=== PATIENT | female | born 1995 | race Caucasian/White ===

== ENCOUNTER 2016-10-07 20:47 | Observation (INO) | payer OTHER ==
[2016-10-07] MEDS ORDERED: NS 0.9% 1000 ML* 2,000 ML IV ONE (20:52)
[2016-10-07] MEDS ORDERED: LORazepam INJ* 2 MG/ML 1 ML VIAL IV ONE ×3 (20:57→21:24)
[2016-10-07] MEDS ORDERED: LORazepam INJ* 2 MG/ML 1 ML VIAL ONE (20:59)
[2016-10-07 21:08] LABS: Hematocrit 43 % (35-47); Hemoglobin 15.2 g/dl (12.0-16.0); Mean Corpuscular HGB Conc 35 g/dl (31-36); Mean Corpuscular Hemoglobin 31 pg (27-31); Mean Corpuscular Volume 89 fL (80-97); Mean Platelet Volume 8 um3 (7.4-10.4); Red Blood Count 4.85 10^6/ul (4.0-5.4); Red Cell Distribution Width 13 % (10.5-15); White Blood Count 8.5 10^3/ul (3.5-10.8)
[2016-10-07 21:27] LABS: ALT 14 U/L (7-52); AST 20 U/L (13-39); Albumin 4.3 g/dL (3.2-5.2); Alkaline Phosphatase 49 U/L (34-104); Anion Gap 10 mmol/L (2-11); Blood Urea Nitrogen 9 mg/dL (6-24); C Reactive Protein < 1.00 mg/L (< 5.00); CO2 Carbon Dioxide 20 mmol/L (22-32); Calcium 8.8 mg/dL (8.6-10.3); Chloride 110 mmol/L (101-111); Creatine Kinase 50 U/L (10-223); EGFR African American 113.2 (>60); Globulin 2.7 g/dL (2-4); Glucose 91 mg/dL (70-100); Lipase 26 U/L (11.0-82.0); Magnesium 1.8 mg/dL (1.9-2.7); Potassium 3.8 mmol/L (3.5-5.0); Sodium 140 mmol/L (133-145)
[2016-10-07] MEDS ORDERED: Magnesium Sulfate 2 GM IV* 2 GM/50 ML BAG IVPB ONE (21:33)
[2016-10-07 21:34] LABS: Urine Bilirubin Negative (Negative); Urine Glucose Negative (Negative); Urine Nitrite Negative (Negative)
[2016-10-07 21:48] LABS: Benzodiazepine Urine Screen Presumptive Positive (None Detect)
[2016-10-07 21:48] LABS: Acetaminophen < 15 mcg/mL; Alcohol 88 mg/dL (<10); Salicylate < 2.50 mg/dL (<30)
[2016-10-07] MEDS ORDERED: LORazepam INJ* 2 MG/ML 1 ML VIAL IV PRN (21:52)
[2016-10-07 21:58] LABS: TSH (Thyroid Stimulating Horm) 2.33 mcIU/mL (0.34-5.60)
[2016-10-07] MEDS ORDERED: Acetaminophen TAB* 325 MG PO PRN (22:38)
[2016-10-07] MEDS ORDERED: Ondansetron INJ* 2 MG/ML VIAL IV PRN (22:38)
[2016-10-07] MEDS ORDERED: NS 0.9% 1000 ML* 1,000 ML IV SCH (22:45)
--- NOTE | 2016-10-07 22:49 | HP ---
H&P (Free Text) History and Physical: PCP: Yue Juarez Date/Time of Evaluation: 10/07/2016 2230 CC: AMS HPI: Ms Wu is a 21YO [employer] student who was at a democrat and found unresponsive by a friend who called EMS. En route, she reportedly had a grand mal tonic-clonic seizure and was given Versed. Upon my arrival, she admits to drinking alcohol, but denies any other substance. She is confused and cannot give reliable historic information otherwise. She denies pain, F/C, cough, congestion, headache, N/V/D, or other issues. Vitals are tachycardic in the 110s with otherwise stable vitals. Labs notable only for a lactic acid of 2.7 and a tox screen showing benzodiazepines ( from EMS) and alcohol level of 88. Prolactin is pending. CT brain WO, CT C-spine WO are pending. Poison control recommends ~8hours monitoring for potential undisclosed ingestion. PMedHx anxiety related seizure depression Medications unknown, will need reconciling in AM. Allergies No Known Allergies Allergy (Verified 10/07/16 20:57) PSurgHx cyst removed from thigh SocHx: denies tobacco & recreational drugs, admits to occasional alcohol; [employer] student studying Journalism and Politics; full code status FamHx: unobtainable ROS: as above, otherwise reviewed and all were negative Constitutional: NAD, normally developed, well-nourished white female vitals: Vital Signs Temp 37.3 C 10/07/16 20:47 Pulse 105 10/07/16 20:47 Resp 18 10/07/16 21:29 BP 116/70 10/07/16 20:47 Pulse Ox 100 10/07/16 20:47 Intake & Output 10/06/16 10/07/16 10/07/16 23:59 11:59 23:59 Weight 58.967 kg HEENM: atraumatic; sclera/conjunctiva: non-icteric/clear; pupils: ~10mm, minimally responsive; hearing: clinically intact; oropharynx: clear, mucosa moist Neck: soft tissue: non-tender; thyroid: normal Pulmonary: clear to auscultation bilaterally, good aeration, no accessory muscle use CV: RR/RR, normal S1S2, no carotid bruit, no jugular venous distention, 2+ B DP/ PT, no edema Abdominal: soft, non-distended, non-tender, no rebound/guarding/rigidity, normoactive bowel sounds, no hepatosplenomegaly or masses, no costovertebral angle tenderness Musculoskeletal: general: grossly intact; gait: stable Integumental: normal appearance and texture of exposed skin Psychiatric orientation: AA&O to PPS affect: calm mood: acquiescent eye contact: poor content: unreliable responses: slowed insight: poor Testing: Lab Results 10/07/16 10/07/16 10/07/16 Range/Units 20:57 20:57 20:57 WBC 8.5 (3.5-10.8) 10^3/ul RBC 4.85 (4.0-5.4) 10^6/ul Hgb 15.2 (12.0-16.0) g/dl Hct 43 (35-47) % MCV 89 (80-97) fL MCH 31 (27-31) pg MCHC 35 (31-36) g/dl RDW 13 (10.5-15) % Plt Count 256 (150-450) 10^3/ul MPV 8 (7.4-10.4) um3 Neut % (Auto) 70.6 (38-83) % Lymph % (Auto) 22.6 L (25-47) % [place] % (Auto) 4.9 (1-9) % Eos % (Auto) 0.2 (0-6) % Baso % (Auto) 1.7 (0-2) % Absolute Neuts (auto) 6.0 (1.5-7.7) 10^3/ul Absolute Lymphs (auto) 1.9 (1.0-4.8) 10^3/ul Absolute Monos (auto) 0.4 (0-0.8) 10^3/ul Absolute Eos (auto) 0 (0-0.6) 10^3/ul Absolute Basos (auto) 0.1 (0-0.2) 10^3/ul Absolute Nucleated RBC 0.01 10^3/ul Nucleated RBC % 0.1 INR (Anticoag Therapy) 1.03 (0.89-1.11) APTT 31.1 (26.0-36.3) seconds Sodium 140 (133-145) mmol/L Potassium 3.8 (3.5-5.0) mmol/L Chloride 110 (101-111) mmol/L Carbon Dioxide 20 L (22-32) mmol/L Anion Gap 10 (2-11) mmol/L BUN 9 (6-24) mg/dL Creatinine 0.82 (0.51-0.95) mg/dL Est GFR ( Amer) 113.2 (>60) Est GFR (Non-Af Amer) 88.0 (>60) BUN/Creatinine Ratio 11.0 (8-20) Glucose 91 (70-100) mg/dL Lactic Acid (0.5-2.0) mmol/L Calcium 8.8 (8.6-10.3) mg/dL Magnesium 1.8 L (1.9-2.7) mg/dL Total Bilirubin 0.50 (0.2-1.0) mg/dL AST 20 (13-39) U/L ALT 14 (7-52) U/L Alkaline Phosphatase 49 (34-104) U/L Total Creatine Kinase 50 (10-223) U/L CK-MB (CK-2) 1.1 (0.6-6.3) ng/mL Troponin I 0.00 (<0.04) ng/mL C-Reactive Protein < 1.00 (< 5.00) mg/L Total Protein 7.0 (6.4-8.9) g/dL Albumin 4.3 (3.2-5.2) g/dL Globulin 2.7 (2-4) g/dL Albumin/Globulin Ratio 1.6 (1-3) Lipase 26 (11.0-82.0) U/L TSH 2.33 (0.34-5.60) mcIU/mL Prolactin 22.8 (1.0-25.0) ng/mL Beta HCG, Quant < 0.60 mIU/mL Urine Color Urine Appearance Urine pH (5-9) Ur Specific [place] (1.010-1.030) Urine Protein (Negative) Urine Ketones (Negative) Urine Blood (Negative) Urine Nitrate (Negative) Urine Bilirubin (Negative) Urine Urobilinogen (Negative) Ur Leukocyte Esterase (Negative) Urine Glucose (Negative) Salicylates < 2.50 (<30) mg/dL Urine Opiates Screen (None Detect) Acetaminophen < 15 mcg/mL Ur Barbiturates Screen (None Detect) Ur Phencyclidine Scrn (None Detect) Ur Amphetamines Screen (None Detect) U Benzodiazepines Scrn (None Detect) Urine Cocaine Screen (None Detect) U Cannabinoids Screen (None Detect) Serum Alcohol 88 H (<10) mg/dL 10/07/16 10/07/16 10/07/16 Range/Units 20:57 21:20 21:20 WBC (3.5-10.8) 10^3/ul RBC (4.0-5.4) 10^6/ul Hgb (12.0-16.0) g/dl Hct (35-47) % MCV (80-97) fL MCH (27-31) pg MCHC (31-36) g/dl RDW (10.5-15) % Plt Count (150-450) 10^3/ul MPV (7.4-10.4) um3 Neut % (Auto) (38-83) % Lymph % (Auto) (25-47) % [place] % (Auto) (1-9) % Eos % (Auto) (0-6) % Baso % (Auto) (0-2) % Absolute Neuts (auto) (1.5-7.7) 10^3/ul Absolute Lymphs (auto) (1.0-4.8) 10^3/ul Absolute Monos (auto) (0-0.8) 10^3/ul Absolute Eos (auto) (0-0.6) 10^3/ul Absolute Basos (auto) (0-0.2) 10^3/ul Absolute Nucleated RBC 10^3/ul Nucleated RBC % INR (Anticoag Therapy) (0.89-1.11) APTT (26.0-36.3) seconds Sodium (133-145) mmol/L Potassium (3.5-5.0) mmol/L Chloride (101-111) mmol/L Carbon Dioxide (22-32) mmol/L Anion Gap (2-11) mmol/L BUN (6-24) mg/dL Creatinine (0.51-0.95) mg/dL Est GFR ( Amer) (>60) Est GFR (Non-Af Amer) (>60) BUN/Creatinine Ratio (8-20) Glucose (70-100) mg/dL Lactic Acid 2.7 H* (0.5-2.0) mmol/L Calcium (8.6-10.3) mg/dL Magnesium (1.9-2.7) mg/dL Total Bilirubin (0.2-1.0) mg/dL AST (13-39) U/L ALT (7-52) U/L Alkaline Phosphatase (34-104) U/L Total Creatine Kinase (10-223) U/L CK-MB (CK-2) (0.6-6.3) ng/mL Troponin I (<0.04) ng/mL C-Reactive Protein (< 5.00) mg/L Total Protein (6.4-8.9) g/dL Albumin (3.2-5.2) g/dL Globulin (2-4) g/dL Albumin/Globulin Ratio (1-3) Lipase (11.0-82.0) U/L TSH (0.34-5.60) mcIU/mL Prolactin (1.0-25.0) ng/mL Beta HCG, Quant mIU/mL Urine Color Straw Urine Appearance Clear Urine pH 6.0 (5-9) Ur Specific [place] 1.003 L (1.010-1.030) Urine Protein Negative (Negative) Urine Ketones Negative (Negative) Urine Blood Negative (Negative) Urine Nitrate Negative (Negative) Urine Bilirubin Negative (Negative) Urine Urobilinogen Negative (Negative) Ur Leukocyte Esterase Negative (Negative) Urine Glucose Negative (Negative) Salicylates (<30) mg/dL Urine Opiates Screen None detected (None Detect) Acetaminophen mcg/mL Ur Barbiturates Screen None detected (None Detect) Ur Phencyclidine Scrn None detected (None Detect) Ur Amphetamines Screen None detected (None Detect) U Benzodiazepines Scrn Presumptive positive H (None Detect) Urine Cocaine Screen None detected (None Detect) U Cannabinoids Screen None detected (None Detect) Serum Alcohol (<10) mg/dL ECG, personally reviewed: NSR rate 106, no ischemia CXR: ordered, pending CT brain WO: ordered, pending CT C-spine WO: ordered, pending Impression: 21F presenting with AMS of uncertain etiology DIAGNOSIS & PLAN Primary AMS/confusion/agitation suspected undisclosed ingestion : telemetery : one to one monitoring : avoid sedating medications : supplemental oxygen : prolactin pending : supportive care Admission Rational: CDU observation for AMS ? ingestion DVTp: POPEYE Code Status: full HCP: mother
[2016-10-07 23:00] LABS: Prolactin 22.8 ng/mL (1.0-25.0)
--- NOTE | 2016-10-07 23:03 | ED ---
Sushila Pearson Anna, scribed for Severiano Yepez MD on 10/07/16 at 2055 . Substance Abuse/Use - HPI Summary HPI Summary: Patient is a 20 y/o female BIBA to [facility] presenting with altered mental status that began this evening after consuming wine. Her friends called the ambulance when the patient became unresponsive. Per EMS, she was responsive to pain but nothing else upon their arrival. She was given fluids INTELLIGENCE INTERN. En route, she spiked a HR of 186 and had a grand mal seizure. She was given Versed. She is now semi- alert. No known head trauma. She denies drug use tonight. Her friend reports that the patient has a history of depression and when self-medicating will often drink alcohol. She previously used street drugs to self-medicate but has not been known to do so in the last year. She was previously on anti- depressants but has not taken them for a while. LEVEL 5 CAVEAT - UNABLE TO OBTAIN FULL HISTORY DUE TO AMS - History Of Current Complaint Stated Complaint: ETOH Hx Obtained From: Patient, EMS, Other: - Patient's friend Onset/Duration of Drug/ETOH Abuse: Days Ingestion History: Type/Name Of Drug - wine Associated Signs And Symptoms: Seizure, Other: - episode of elevated HR - Allergies/Home Medications Allergies/Adverse Reactions: Allergies Allergy/AdvReac Type Severity Reaction Status Date / Time No Known Allergies Allergy Verified 10/07/16 20:57 PMH/Surg Hx/FS Hx/Imm Hx Neurological History: Reports: Hx Seizures - She has had one previous seizure, which was said to be anxiety-related Psychiatric History: Reports: Hx Anxiety, Hx Depression, Hx Post Traumatic Stress Disorder, Hx Substance Abuse - inc. Hx intentional overdose, Other Psychiatric Issues/Disorders - Hx self-harm via razors Denies: Hx Eating Disorder, Hx of Violent Episodes Against Others - Family History Known Family History: Positive: Other - FHx suicide, depression, substance abuse - Social History Occupation: Student Lives: With Family Alcohol Use: Occasionally Substance Use Type: Reports: Other Substance Use Comment - Amount & Last Used: over the counter medications Smoking Status (MU): Never Smoked Tobacco Review of Systems - ROS Summary Review of Systems Summary: LEVEL 5 CAVEAT - UNABLE TO OBTAIN FULL HISTORY DUE TO AMS Cardiovascular: Other - elevated HR Neurological: Other - AMS Positive: Syncope - seizure All Other Systems Reviewed And Are Negative: No Physical Exam - Summary Physical Exam Summary: No obvious signs of trauma. Triage Information Reviewed: Yes Vital Signs On Initial Exam: Temp Pulse Resp BP Pulse Ox 99.1 F 105 22 116/70 100 10/07/16 20:47 10/07/16 20:47 10/07/16 21:01 10/07/16 20:47 10/07/16 20:47 Vital Signs Reviewed: Yes Appearance: Positive: Well-Appearing, No Pain Distress Skin: Positive: Warm, Skin Color Reflects Adequate Perfusion, Dry Head/Face: Positive: Normal Head/Face Inspection Eyes: Positive: Other: - Pupils 6 mm and reactive ENT: Positive: Normal ENT inspection Neck: Positive: Supple, Nontender Respiratory/Lung Sounds: Positive: Clear to Auscultation, Breath Sounds Present Cardiovascular: Positive: Tachycardia Abdomen Description: Positive: Nontender, Soft Bowel Sounds: Positive: Present Musculoskeletal: Positive: Normal, Strength/ROM Intact Neurological: Positive: Other - Pt is mildly stuporous. Moving extremities normally. Psychiatric: Positive: Affect/Mood Appropriate Diagnostics - Vital Signs Vital Signs Temp Pulse Resp BP Pulse Ox 10/07/16 21:29 18 10/07/16 21:15 20 10/07/16 21:01 22 10/07/16 20:47 99.1 F 105 27 116/70 100 - Laboratory Lab Results: Lab Results 10/07/16 10/07/16 10/07/16 Range/Units 20:57 20:57 20:57 WBC 8.5 (3.5-10.8) 10^3/ul RBC 4.85 (4.0-5.4) 10^6/ul Hgb 15.2 (12.0-16.0) g/dl Hct 43 (35-47) % MCV 89 (80-97) fL MCH 31 (27-31) pg MCHC 35 (31-36) g/dl RDW 13 (10.5-15) % Plt Count 256 (150-450) 10^3/ul MPV 8 (7.4-10.4) um3 Neut % (Auto) 70.6 (38-83) % Lymph % (Auto) 22.6 L (25-47) % [place] % (Auto) 4.9 (1-9) % Eos % (Auto) 0.2 (0-6) % Baso % (Auto) 1.7 (0-2) % Absolute Neuts (auto) 6.0 (1.5-7.7) 10^3/ul Absolute Lymphs (auto) 1.9 (1.0-4.8) 10^3/ul Absolute Monos (auto) 0.4 (0-0.8) 10^3/ul Absolute Eos (auto) 0 (0-0.6) 10^3/ul Absolute Basos (auto) 0.1 (0-0.2) 10^3/ul Absolute Nucleated RBC 0.01 10^3/ul Nucleated RBC % 0.1 INR (Anticoag Therapy) 1.03 (0.89-1.11) APTT 31.1 (26.0-36.3) seconds Sodium 140 (133-145) mmol/L Potassium 3.8 (3.5-5.0) mmol/L Chloride 110 (101-111) mmol/L Carbon Dioxide 20 L (22-32) mmol/L Anion Gap 10 (2-11) mmol/L BUN 9 (6-24) mg/dL Creatinine 0.82 (0.51-0.95) mg/dL Est GFR ( Amer) 113.2 (>60) Est GFR (Non-Af Amer) 88.0 (>60) BUN/Creatinine Ratio 11.0 (8-20) Glucose 91 (70-100) mg/dL Lactic Acid (0.5-2.0) mmol/L Calcium 8.8 (8.6-10.3) mg/dL Magnesium 1.8 L (1.9-2.7) mg/dL Total Bilirubin 0.50 (0.2-1.0) mg/dL AST 20 (13-39) U/L ALT 14 (7-52) U/L Alkaline Phosphatase 49 (34-104) U/L Total Creatine Kinase 50 (10-223) U/L CK-MB (CK-2) 1.1 (0.6-6.3) ng/mL Troponin I 0.00 (<0.04) ng/mL C-Reactive Protein < 1.00 (< 5.00) mg/L Total Protein 7.0 (6.4-8.9) g/dL Albumin 4.3 (3.2-5.2) g/dL Globulin 2.7 (2-4) g/dL Albumin/Globulin Ratio 1.6 (1-3) Lipase 26 (11.0-82.0) U/L TSH 2.33 (0.34-5.60) mcIU/mL Prolactin 22.8 (1.0-25.0) ng/mL Beta HCG, Quant < 0.60 mIU/mL Urine Color Urine Appearance Urine pH (5-9) Ur Specific [place] (1.010-1.030) Urine Protein (Negative) Urine Ketones (Negative) Urine Blood (Negative) Urine Nitrate (Negative) Urine Bilirubin (Negative) Urine Urobilinogen (Negative) Ur Leukocyte Esterase (Negative) Urine Glucose (Negative) Salicylates < 2.50 (<30) mg/dL Urine Opiates Screen (None Detect) Acetaminophen < 15 mcg/mL Ur Barbiturates Screen (None Detect) Ur Phencyclidine Scrn (None Detect) Ur Amphetamines Screen (None Detect) U Benzodiazepines Scrn (None Detect) Urine Cocaine Screen (None Detect) U Cannabinoids Screen (None Detect) Serum Alcohol 88 H (<10) mg/dL 10/07/16 10/07/16 10/07/16 Range/Units 20:57 21:20 21:20 WBC (3.5-10.8) 10^3/ul RBC (4.0-5.4) 10^6/ul Hgb (12.0-16.0) g/dl Hct (35-47) % MCV (80-97) fL MCH (27-31) pg MCHC (31-36) g/dl RDW (10.5-15) % Plt Count (150-450) 10^3/ul MPV (7.4-10.4) um3 Neut % (Auto) (38-83) % Lymph % (Auto) (25-47) % [place] % (Auto) (1-9) % Eos % (Auto) (0-6) % Baso % (Auto) (0-2) % Absolute Neuts (auto) (1.5-7.7) 10^3/ul Absolute Lymphs (auto) (1.0-4.8) 10^3/ul Absolute Monos (auto) (0-0.8) 10^3/ul Absolute Eos (auto) (0-0.6) 10^3/ul Absolute Basos (auto) (0-0.2) 10^3/ul Absolute Nucleated RBC 10^3/ul Nucleated RBC % INR (Anticoag Therapy) (0.89-1.11) APTT (26.0-36.3) seconds Sodium (133-145) mmol/L Potassium (3.5-5.0) mmol/L Chloride (101-111) mmol/L Carbon Dioxide (22-32) mmol/L Anion Gap (2-11) mmol/L BUN (6-24) mg/dL Creatinine (0.51-0.95) mg/dL Est GFR ( Amer) (>60) Est GFR (Non-Af Amer) (>60) BUN/Creatinine Ratio (8-20) Glucose (70-100) mg/dL Lactic Acid 2.7 H* (0.5-2.0) mmol/L Calcium (8.6-10.3) mg/dL Magnesium (1.9-2.7) mg/dL Total Bilirubin (0.2-1.0) mg/dL AST (13-39) U/L ALT (7-52) U/L Alkaline Phosphatase (34-104) U/L Total Creatine Kinase (10-223) U/L CK-MB (CK-2) (0.6-6.3) ng/mL Troponin I (<0.04) ng/mL C-Reactive Protein (< 5.00) mg/L Total Protein (6.4-8.9) g/dL Albumin (3.2-5.2) g/dL Globulin (2-4) g/dL Albumin/Globulin Ratio (1-3) Lipase (11.0-82.0) U/L TSH (0.34-5.60) mcIU/mL Prolactin (1.0-25.0) ng/mL Beta HCG, Quant mIU/mL Urine Color Straw Urine Appearance Clear Urine pH 6.0 (5-9) Ur Specific [place] 1.003 L (1.010-1.030) Urine Protein Negative (Negative) Urine Ketones Negative (Negative) Urine Blood Negative (Negative) Urine Nitrate Negative (Negative) Urine Bilirubin Negative (Negative) Urine Urobilinogen Negative (Negative) Ur Leukocyte Esterase Negative (Negative) Urine Glucose Negative (Negative) Salicylates (<30) mg/dL Urine Opiates Screen None detected (None Detect) Acetaminophen mcg/mL Ur Barbiturates Screen None detected (None Detect) Ur Phencyclidine Scrn None detected (None Detect) Ur Amphetamines Screen None detected (None Detect) U Benzodiazepines Scrn Presumptive positive H (None Detect) Urine Cocaine Screen None detected (None Detect) U Cannabinoids Screen None detected (None Detect) Serum Alcohol (<10) mg/dL Result Diagrams: 10/07/16 20:57 10/07/16 20:57 Lab Statement: Any lab studies that have been ordered have been reviewed, and results considered in the medical decision making process. - EKG 2155 Cardiac Rate: Tachycardia - 106 bpm EKG Rhythm: Sinus Tachycardia ST Segment: Normal Ectopy: None EKG Interpretation: MS 163. QTc 467. Course/Dx - Course Assessment/Plan: PATIENT AGITATED IN ED, REQUIRING IV ATIVAN AND RESTRAINTS. PUPILS DIALATED. PRIOR HX OF ONE SEIZURE PER MOTHER. ETOH LEVEL 88. DISCUSSED WITH POISON CONTROL. ADMIT HOSPITALIST STABLE. - Diagnoses Provider Diagnoses: Seizure, Substance abuse - Physician Notifications Discussed Care Of Patient With: Nurse Kait discussed care with Poison Control at 2220. Poison control says patient can be given more fluids and Benzo as needed. She should be watched for 6-[address] Lind (hospitalist) at 2230. Agrees to accept patient for admission. - Critical Care Time Critical Care Time: 30-74 min Discharge - Discharge Plan Condition: Stable Disposition: ADMITTED TO [facility] documentation as recorded by the Sushila castellano Anna accurately reflects the service I personally performed and the decisions made by me, Severiano Yepez MD.
[2016-10-08 05:22] LABS: Hematocrit 42 % (35-47); Hemoglobin 14.4 g/dl (12.0-16.0); Mean Corpuscular HGB Conc 34 g/dl (31-36); Mean Corpuscular Hemoglobin 31 pg (27-31); Mean Corpuscular Volume 90 fL (80-97); Mean Platelet Volume 8 um3 (7.4-10.4); Red Blood Count 4.68 10^6/ul (4.0-5.4); Red Cell Distribution Width 13 % (10.5-15); White Blood Count 8.9 10^3/ul (3.5-10.8)
[2016-10-08 05:47] LABS: BUN/Creatinine Ratio 10.3 (8-20); Calcium 8.4 mg/dL (8.6-10.3); EGFR African American 140.5 (>60); EGFR Non-African American 109.2 (>60); Potassium 3.9 mmol/L (3.5-5.0)
[2016-10-08] MEDS ORDERED: Omeprazole CAP* 20 MG PO SCH (06:00)
--- NOTE | 2016-10-08 08:15 | RAD ---
INDICATION: Altered mental status COMPARISON: None TECHNIQUE: PA dual-energy views were obtained. FINDINGS: Bones/Soft Tissues: There are no acute bony findings. Cardiomediastinal: The cardiomediastinal silhouette is normal. Lungs: There are no infiltrates. Pleura: There are no pleural effusions. Other: None IMPRESSION: NEGATIVE EXAMINATION.
--- NOTE | 2016-10-08 08:15 | RAD ---
Indication: Confusion, seizures. CT of the cervical spine was obtained in the axial plane. Sagittal and coronal reconstructed images were obtained. Skull base and mastoid air cells are unremarkable. The C1 ring is intact. No evidence of fracture is noted. The remainder of the vertebral bodies appear normal in height. No evidence of fracture is noted. All the disc spaces appear to be well preserved. There is straightening of the normal lordosis. The lung apices are grossly unremarkable. No obvious rib fractures are noted. The visualized mandible and hyoid bone are unremarkable. Soft tissues of the neck demonstrates no evidence of abnormal adenopathy. IMPRESSION: No fracture of the cervical spine is present.
--- NOTE | 2016-10-08 08:16 | RAD ---
Indication: Altered mental status. Possible seizure. Comparison: None. Technique: Noncontrast CT vertex of skull through foramen magnum. Report: The sulci, ventricles, and basal cisterns are normal for age. Marshall matter white matter differentiation is preserved without evidence for edema. No intra or extra axial hemorrhage, mass, or fluid collection detected. Unremarkable visualized orbital contents. Unremarkable calvarium and skull base. Unremarkable scalp. The visualized paranasal sinuses and mastoid air spaces are clear. IMPRESSION: Negative unenhanced head CT.
--- NOTE | 2016-10-08 08:33 | PN ---
Subjective Date of Service: 10/08/16 Interval History: Ms. Wu is lying in bed with 1:1 safety monitor in room. She arouses easily to verbal stimuli and is cooperative with staff and with examination. When asked to recall the events of last evening, she reports that she initially was drinking by herself, but then her friends came over to join her. She reports drinking "a little rum and a lot of wine." She does not recall any sensation or warning signs prior to losing consciousness. Her next memory is waking up in the ED and being told she had a seizure. She denies any previous history of seizure activity but does endorse a history of convulsive syncope, usually following panic attacks. She does not recall any childhood history of seizure activity. Ms. Wu stated multiple times that she does not want to harm herself. She states that she was previously on "an antidepressant" but took herself off of the medication approximately 6 months ago. She does report "drinking alcohol" to relax. She continues to deny any purposeful ingestion and states that she served all of her own drinks, so it is highly unlikely that someone gave her anything. She has declined a mental health evaluation but is cooperative with getting an EKG and remaining on telemetry and continuing her medical workup. Her boyfriend, Froilan, is in the room with her. Telemetry: Sinus tachycardia 90s-100s Family History: Unchanged from Admission Social History: Unchanged from Admission Past Medical History: Unchanged from Admission Objective Active Medications: Acetaminophen (Tylenol Tab*) 650 mg PO Q6H PRN PRN Reason: FEVER/PAIN Sodium Chloride (Ns 0.9% 1000 Ml*) 1,000 mls @ 125 mls/hr IV PER RATE [facility] Last Admin: 10/08/16 00:44 Dose: 125 mls/hr Lorazepam (Ativan Inj*) 2 mg IV ED ONCE PRN PRN Reason: AGITATION Omeprazole (Prilosec Cap*) 20 mg PO DAILY@0600 [facility] Last Admin: 10/08/16 06:25 Dose: Not Given Ondansetron HCl (Zofran Inj*) 4 mg IV Q6H PRN PRN Reason: NAUSEA Vital Signs 10/07/16 10/07/16 10/08/16 23:00 23:30 00:45 Temperature 99.0 F Pulse Rate 110 109 94 Respiratory 16 20 18 Rate Blood Pressure 109/82 106/52 128/62 (mmHg) O2 Sat by Pulse 99 97 100 Oximetry 10/08/16 03:24 Temperature 98.0 F Pulse Rate 94 Respiratory 16 Rate Blood Pressure 115/69 (mmHg) O2 Sat by Pulse 99 Oximetry Oxygen Devices in Use Now: None Appearance: Young, well-appearing female, lying in bed, NAD Eyes: PERRLA Ears/Nose/Mouth/Throat: Clear Oropharnyx, Mucous Membranes Moist Neck: NL Appearance and Movements; NL JVP Respiratory: Symmetrical Chest Expansion and Respiratory Effort, Clear to Auscultation Cardiovascular: NL Sounds; No Murmurs; No JVD, RRR - tachycardic Abdominal: NL Sounds; No Tenderness; No Distention Lymphatic: No Cervical Adenopathy, No Auricular Adenopathy Extremities: No Edema Skin: No Rash or Ulcers, No Nodules or Sclerosis Neurological: Alert and Oriented x 3 Lines/Tubes/Other Access: Clean, Dry and Intact Vera, Clean, Dry and Intact Peripheral IV Result Diagrams: 10/08/16 04:52 10/08/16 04:52 Additional Lab and Data: Lab Results 10/07/16 10/07/16 10/07/16 Range/Units 20:57 20:57 20:57 WBC 8.5 (3.5-10.8) 10^3/ul RBC 4.85 (4.0-5.4) 10^6/ul Hgb 15.2 (12.0-16.0) g/dl Hct 43 (35-47) % MCV 89 (80-97) fL MCH 31 (27-31) pg MCHC 35 (31-36) g/dl RDW 13 (10.5-15) % Plt Count 256 (150-450) 10^3/ul MPV 8 (7.4-10.4) um3 Neut % (Auto) 70.6 (38-83) % Lymph % (Auto) 22.6 L (25-47) % Adams % (Auto) 4.9 (1-9) % Eos % (Auto) 0.2 (0-6) % Baso % (Auto) 1.7 (0-2) % Absolute Neuts (auto) 6.0 (1.5-7.7) 10^3/ul Absolute Lymphs (auto) 1.9 (1.0-4.8) 10^3/ul Absolute Monos (auto) 0.4 (0-0.8) 10^3/ul Absolute Eos (auto) 0 (0-0.6) 10^3/ul Absolute Basos (auto) 0.1 (0-0.2) 10^3/ul Absolute Nucleated RBC 0.01 10^3/ul Nucleated RBC % 0.1 INR (Anticoag Therapy) 1.03 (0.89-1.11) APTT 31.1 (26.0-36.3) seconds Sodium 140 (133-145) mmol/L Potassium 3.8 (3.5-5.0) mmol/L Chloride 110 (101-111) mmol/L Carbon Dioxide 20 L (22-32) mmol/L Anion Gap 10 (2-11) mmol/L BUN 9 (6-24) mg/dL Creatinine 0.82 (0.51-0.95) mg/dL Est GFR ( Amer) 113.2 (>60) Est GFR (Non-Af Amer) 88.0 (>60) BUN/Creatinine Ratio 11.0 (8-20) Glucose 91 (70-100) mg/dL Lactic Acid (0.5-2.0) mmol/L Calcium 8.8 (8.6-10.3) mg/dL Magnesium 1.8 L (1.9-2.7) mg/dL Total Bilirubin 0.50 (0.2-1.0) mg/dL AST 20 (13-39) U/L ALT 14 (7-52) U/L Alkaline Phosphatase 49 (34-104) U/L Total Creatine Kinase 50 (10-223) U/L CK-MB (CK-2) 1.1 (0.6-6.3) ng/mL Troponin I 0.00 (<0.04) ng/mL C-Reactive Protein < 1.00 (< 5.00) mg/L Total Protein 7.0 (6.4-8.9) g/dL Albumin 4.3 (3.2-5.2) g/dL Globulin 2.7 (2-4) g/dL Albumin/Globulin Ratio 1.6 (1-3) Lipase 26 (11.0-82.0) U/L TSH 2.33 (0.34-5.60) mcIU/mL Prolactin 22.8 (1.0-25.0) ng/mL Beta HCG, Quant < 0.60 mIU/mL Urine Color Urine Appearance Urine pH (5-9) Ur Specific [place] (1.010-1.030) Urine Protein (Negative) Urine Ketones (Negative) Urine Blood (Negative) Urine Nitrate (Negative) Urine Bilirubin (Negative) Urine Urobilinogen (Negative) Ur Leukocyte Esterase (Negative) Urine Glucose (Negative) Salicylates < 2.50 (<30) mg/dL Urine Opiates Screen (None Detect) Acetaminophen < 15 mcg/mL Ur Barbiturates Screen (None Detect) Ur Phencyclidine Scrn (None Detect) Ur Amphetamines Screen (None Detect) U Benzodiazepines Scrn (None Detect) Urine Cocaine Screen (None Detect) U Cannabinoids Screen (None Detect) Serum Alcohol 88 H (<10) mg/dL 10/07/16 10/07/16 10/07/16 Range/Units 20:57 21:20 21:20 WBC (3.5-10.8) 10^3/ul RBC (4.0-5.4) 10^6/ul Hgb (12.0-16.0) g/dl Hct (35-47) % MCV (80-97) fL MCH (27-31) pg MCHC (31-36) g/dl RDW (10.5-15) % Plt Count (150-450) 10^3/ul MPV (7.4-10.4) um3 Neut % (Auto) (38-83) % Lymph % (Auto) (25-47) % Adams % (Auto) (1-9) % Eos % (Auto) (0-6) % Baso % (Auto) (0-2) % Absolute Neuts (auto) (1.5-7.7) 10^3/ul Absolute Lymphs (auto) (1.0-4.8) 10^3/ul Absolute Monos (auto) (0-0.8) 10^3/ul Absolute Eos (auto) (0-0.6) 10^3/ul Absolute Basos (auto) (0-0.2) 10^3/ul Absolute Nucleated RBC 10^3/ul Nucleated RBC % INR (Anticoag Therapy) (0.89-1.11) APTT (26.0-36.3) seconds Sodium (133-145) mmol/L Potassium (3.5-5.0) mmol/L Chloride (101-111) mmol/L Carbon Dioxide (22-32) mmol/L Anion Gap (2-11) mmol/L BUN (6-24) mg/dL Creatinine (0.51-0.95) mg/dL Est GFR ( Amer) (>60) Est GFR (Non-Af Amer) (>60) BUN/Creatinine Ratio (8-20) Glucose (70-100) mg/dL Lactic Acid 2.7 H* (0.5-2.0) mmol/L Calcium (8.6-10.3) mg/dL Magnesium (1.9-2.7) mg/dL Total Bilirubin (0.2-1.0) mg/dL AST (13-39) U/L ALT (7-52) U/L Alkaline Phosphatase (34-104) U/L Total Creatine Kinase (10-223) U/L CK-MB (CK-2) (0.6-6.3) ng/mL Troponin I (<0.04) ng/mL C-Reactive Protein (< 5.00) mg/L Total Protein (6.4-8.9) g/dL Albumin (3.2-5.2) g/dL Globulin (2-4) g/dL Albumin/Globulin Ratio (1-3) Lipase (11.0-82.0) U/L TSH (0.34-5.60) mcIU/mL Prolactin (1.0-25.0) ng/mL Beta HCG, Quant mIU/mL Urine Color Straw Urine Appearance Clear Urine pH 6.0 (5-9) Ur Specific [place] 1.003 L (1.010-1.030) Urine Protein Negative (Negative) Urine Ketones Negative (Negative) Urine Blood Negative (Negative) Urine Nitrate Negative (Negative) Urine Bilirubin Negative (Negative) Urine Urobilinogen Negative (Negative) Ur Leukocyte Esterase Negative (Negative) Urine Glucose Negative (Negative) Salicylates (<30) mg/dL Urine Opiates Screen None detected (None Detect) Acetaminophen mcg/mL Ur Barbiturates Screen None detected (None Detect) Ur Phencyclidine Scrn None detected (None Detect) Ur Amphetamines Screen None detected (None Detect) U Benzodiazepines Scrn Presumptive positive H (None Detect) Urine Cocaine Screen None detected (None Detect) U Cannabinoids Screen None detected (None Detect) Serum Alcohol (<10) mg/dL Diagnostic Imaging: CT brain - negative unenhanced CT CT cervical spine - no fracture of cervical spine present CXR - no acute pathology EKG Data: EKG - NSR 106, no ischemic changes noted Assess/Plan/Problems-Billing Assessment: Ms. Wu is a 21 yo female patient with a PMH of panic attacks, convulsive syncope, and depression who was brought in last evening with concern for unresponsive episode and reported tonic-clonic seizure activity following alcohol ingestion. - Patient Problems (1) Altered mental status Code(s): R41.82 - ALTERED MENTAL STATUS, UNSPECIFIED Comment: With confusion and agitation ? tonic-clonic seizure, no previously known hx of seizures Patient appears to be within her baseline and is cooperative Check EEG, continue neurological checks q2 Continue telemetry monitoring Supportive care (2) Depressive disorder Onset Date: 03/12/15 Code(s): F32.9 - MAJOR DEPRESSIVE DISORDER, SINGLE EPISODE, UNSPECIFIED Comment: Denies SI/HI Patient reports previous dx history of depression and substance abuse No longer on anti-depressants Will need to continue outpatient follow-up, patient sees Melva Powell counselor (3) DVT prophylaxis Code(s): ZAY8191 - Comment: POPEYE angulo Status and Disposition: OBV admit. D/c to home when medically stable.
[2016-10-08 10:24] VITALS: BP 110/71
--- NOTE | 2016-10-08 11:08 | PN ---
Hospitalist Progress Note Discussion had with Carlota Bruce, , who lives with the patient. Carlota expressed concern because the patient repeatedly asked her last evening to " give me my keys so I can drive myself off a bridge." Carlota also was present when the patient went unresponsive and called EMS. She expressed concern that the patient self-medicates via drug and alcohol use. The patient's boyfriend, Froilan , agrees that the patient does "probably self medicate" but states that she "doesn't really open herself up to me or share much." He does report that she has a lot of family issues as well as stress at school. Patient notified that MH eval would be required prior to discharge. She is in agreement and cooperative with plan at this time. Consult placed to Dr. Ovalles.
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
--- NOTE | 2016-10-09 00:28 | EEG ---
ELECTROENCEPHALOGRAPHY: DATE OF STUDY: 10/08/16 LOCATION: She is an inpatient, room [address]. REFERRING PROVIDER: Jacquelin Qureshi NP CLINICAL HISTORY: Seizure on the way to hospital and unresponsiveness. Alcohol and possibly benzod iazepines were involved. MEDICATIONS: Include: 1. Prilosec. 2. Zofran. 3. Lorazepam. EEG DESCRIPTION: This 16-channel EEG is remarkable for background rhythms consisting of a posterior alpha rhythm at about 9 cycles per second, which is symmetric and suppressed by eye opening. Moder ate-to-low voltage bifrontal beta rhythms are noted and are symmetric. The patient is clinically aw ryan. Hyperventilations carried out with a small amount of bitemporal slowing were prominent from the left than the right, but no abnormalities are elicited. Photic stimulation was carried out with a well formed occipital driving response, but again no abnormalities are elicited. The patient drowse s and falls lightly asleep later in the tracing with vertex slowing and bitemporal theta activity. There may be some rudimentary sleep spindles noted. The patient was awoken at the end of the record ing with a normal arousal response. There were no focal, lateralized, or epileptiform abnormalities . INTERPRETATION: Normal awake and asleep EEG. [id number]/[facility] #: [id number]
--- NOTE | 2016-10-10 07:51 | DS ---
MEDICINE DISCHARGE SUMMARY: DATE OF ADMISSION: 10/07/16 DATE OF DISCHARGE: 10/08/16 ATTENDING PHYSICIAN: Haley Fried MD *(as dictated by Aufa Gold NP ). PRIMARY CARE PROVIDER: Afua Gold NP. CONSULTING PHYSICIAN: Nagi Ovalles MD, Psychiatry. PRIMARY DISCHARGE DIAGNOSES: 1. Convulsive syncope, secondary to alcohol use. 2. Altered mental status. 3. At risk of alcohol abuse. 4. Depression. SECONDARY DISCHARGE DIAGNOSIS: Depression. MEDICATIONS AT DISCHARGE: Sertraline 50 mg daily. This is a new medication. Patient was previously taking, but had stopped and is willing to start again and has been instructed to follow up with [facility] psychiatrist, Dr. Forbes, for further titration of medication. HOSPITAL TESTING DURING THIS ADMISSION: CT of the brain, negative. CT cervical spine, no fracture of the cervical spine is present. EEG, normal awake and sleep EEG. HOSPITAL COURSE OF STAY: For full details, please refer to the H and P provided by Dr. Lind on 10/07/16. In summary, Ms. Wu is a 21-year- old female [employer] student who was at home drinking alcohol and was joined by her friends. Her friends became concerned as the patient became unresponsive and called the EMS. En route, the EMS team provided report, witnessing tonic-clonic activity. She was treated with Versed. In the ER, the patient did arouse and was reportedly agitated. She did admit to drinking alcohol but denied any other substance abuse. Her urine tox screen was only positive for benzos, which could be attributed to the Versed provided by EMS. She admitted under observation with a one-to-one sitter. The following morning the patient was alert, cooperative. An EEG was done with the aforementioned results. Patient showed no further episodes of seizure activity and remained in sinus rhythm, telemetry with no concern for ectopy or arrhythmias. The patient denies any previous seizure history but does state that she has had a history of panic attacks followed by syncopal episodes with convulsions. She has never been on seizure medications. With a negative EEG at this time, patient was advised to follow up with her PCP in regards to what appears to be convulsive syncope. She does describe previous episodes of this. It seems that the alcohol use has precipitated this incident. There is also concern expressed by the patient's roommate in regards to her mental health. Prior to her unresponsive episode, roommate reports that the patient was making statement such as "wanting to drive herself off a bridge." She was seen in consultation by our psychiatrist, Dr. Ovalles. He did not feel that she needed an acute admission at this time but did express concern that she does meet criteria for clinical depression. She did admit to significant alcohol use, and the patient does also admit that she does have concern for her alcohol use, which is likely self medicating. Dr. Ovalles referred her to Dr. Forbes, who works at [facility]. Our social work department has called the counseling services department to help arrange that appointment. In addition, she will follow up with her psychotherapist, Melva Powell, sometime on Tuesday10/08/16. She did ask about restarting her Zoloft which I did discuss with Dr. Ovalles. The patient will restart on Zoloft 50 mg with the understanding that she will need to titrate this to a therapeutic dose. She has been advised to discuss with Dr. Forbes and to titrate her Zoloft dose to a therapeutic level under the direction of a psychiatrist. She verbalized understanding of this. Prior to discharge, the patient was able to demonstrate adequate p.o. intake and was able to void after her catheter was discontinuing. She is hemodynamically stable, alert and cooperative to care. She will be discharged to home with her boyfriend, Froilan, and will be going home with 2 roommates to help monitor her over the next several days. We did discuss that she should not drink alcohol, which she is in agreement with. CONCERNS AT DISCHARGE: Ms. Wu will be discharged to home on 10/08/16. She is to followup with [facility] and with Dr. Forbes at the [place] [facility]. DIET: Regular diet. ACTIVITY: As tolerated. CONDITION: Improved, stable. DISPOSITION: To home. TIME SPENT: Time spent on this discharge was approximately 50 minutes. Again, this is only a brief summary of the patient's hospital course of stay. For full details, please refer to the full medical record. If you have any further questions or need further assistance, please feel free to contact me at . AFUA GOLD NP CC: [facility] * [id number]/[facility] #: [id number] MTDD
== END 2016-10-08 15:21 | disposition home or self-care (01) ==
LOC: ED 20:47 → MEDTELE 22:37
PROVIDERS: ADMIT Hospitalist; ATTEND Internal Medicine
DX: F10.988 Alcohol use, unspecified with other alcohol-induced disorder (principal); R56.9 Unspecified convulsions; R41.82 Altered mental status, unspecified; F32.9 Major depressive disorder, single episode, unspecified; R45.851 Suicidal ideations
CPT/HCPCS: 36415; 70450; 71010; 72125; 80048; 80053; 80307; 80320; 80329; 81003; 82550; 82553; 83605; 83690; 83735; 84146; 84443; 84484; 84702; 85025; 85027; 85610; 85730; 86140; 93005; 95816; 96374; 96375; 99284; A9270-GY; G0378; G0480; J2060

== ENCOUNTER 2016-10-11 12:51 | Emergency (ER) | payer OTHER ==
[2016-10-11 13:41] VITALS: BP 132/83
--- NOTE | 2016-10-11 14:11 | ED ---
Shannon Pearson Auryana, scribed for Caesar Adams MD on 10/11/16 at 1345 . Syncope/Near Syncope - HPI Summary HPI Summary: 21 year old female presenting to the ED s/p syncopal episode in class today. She states feeling hot-couldn't breathe and body was freaking out. She states that she does not know how long the episode lasted but remembers waking up here. She also reports feeling very dizzy and lightheaded. She states that she was [place] [facility] [place] ([place]/16) - EEG done - no seizure activity- discharged with Zoloft but states that she she does not want to take her prescribed medication. She reports drinking "a lot of coffee" but has a normal appetite. She states that she has had trouble falling asleep at night. She denies any urinary incontinence, tongue biting, SI, depression, excessive stress, or any abd pain. Past [place] health [place] [facility] [place] days last year same time. State unknown FMHx seizures. Social history positive for marijuana but denies any other recreational drug use. She denies drinking today and yesterday- last drink 11/06/16. - History Of Current Complaint Chief Complaint: EDSeizure Time Seen by Provider: 10/11/16 13:33 Hx Obtained From: Patient Onset/Duration: Sudden Onset Timing: Intermittent Episode Lasting - unknown duration Context: Witnessed - in class Activity At Onset: At Rest - in class Associated Head Trauma: No Aggravating Factor(s): Nothing Alleviating Factor(s): Spontaneous Resolution Associated Signs And Symptoms: Lightheadedness Related History: Similar Episode/Dx as - see HPI - Allergies/Home Medications Allergies/Adverse Reactions: Allergies Allergy/AdvReac Type Severity Reaction Status Date / Time No Known Allergies Allergy Verified 10/11/16 13:05 PMH/Surg Hx/FS Hx/Imm Hx Sensory History: Denies: Hx Contacts or Glasses, Hx Hearing Aid Opthamlomology History: Denies: Hx Contacts or Glasses Neurological History: Reports: Hx Seizures - She has had one previous seizure, which was said to be anxiety-related Psychiatric History: Reports: Hx Anxiety, Hx Depression, Hx Post Traumatic Stress Disorder, Hx Substance Abuse - inc. Hx intentional overdose, Other Psychiatric Issues/Disorders - Hx self-harm via razors Denies: Hx Eating Disorder, Hx of Violent Episodes Against Others Infectious Disease History: No Infectious Disease History: Denies: Traveled Outside the [place] in Last 30 Days - Family History Known Family History: Positive: Other - FHx suicide, depression, substance abuse - Social History Occupation: Student Lives: With Family Alcohol Use: Occasionally Hx Substance Use: Yes Substance Use Type: Reports: Marijuana Hx Tobacco Use: No Smoking Status (MU): Never Smoked Tobacco Review of Systems Constitutional: Negative Negative: Fever Eyes: Negative ENT: Negative Cardiovascular: Negative Respiratory: Negative Gastrointestinal: Negative Negative: Abdominal Pain Genitourinary: Negative Musculoskeletal: Negative Skin: Negative Neurological: Negative Positive: Other - lightheadedness, dizziness, trouble falling asleep at night All Other Systems Reviewed And Are Negative: Yes Physical Exam - Summary Physical Exam Summary: The patient is well-nourished in no acute distress and in no acute pain. The skin is warm and dry and skin color reflects adequate perfusion. HEENT: The head is normocephalic and atraumatic. The pupils are equal and reactive. The conjunctivae are clear and without drainage. Nares are patent and without drainage. Mouth reveals moist mucous membranes and the throat is without erythema and exudate. The external ears are intact. The ear canals are patent and without drainage. The tympanic membranes are intact. No trauma to lips or tongue. Neck is supple with full range of motion and non-tender. There are no carotid bruits. There is no neck vein distension. Respiratory: Chest is non-tender. Lungs are clear to auscultation and breath sounds are symmetrical and equal. Cardiovascular: Hear is regular rate and rhythm. There is no murmur or rub auscultated. There is no peripheral edema and pulses are symmetrical and equal. Abdomen: The abdomen is soft and non-tender. There are normal bowel sounds heard in all four quadrants and there is no organomegaly palpated. Musculoskeletal: There is no back pain noted. Extremities are non-tender with full range of motion. There is good capillary refill. There is no peripheral edema or calf tenderness elicited. Neurological: Patient is alert and oriented to person, place and time. The patient has symmetrical motor strength in all four extremities. Cranial nerves are grossly intact. Deep tendon reflexes are symmetrical and equal in all four extremities. Psychiatric: The patient appears depressed and does not exhibit any anxiety. Triage Information Reviewed: Yes Vital Signs On Initial Exam: Initial Vitals Temp Pulse Resp BP Pulse Ox 98.9 F 78 16 127/75 99 10/11/16 12:53 10/11/16 12:53 10/11/16 12:53 10/11/16 12:53 10/11/16 12:53 Vital Signs Reviewed: Yes - [place] Coma Scale Coma Scale Total: 15 Diagnostics - Vital Signs Vital Signs Temp Pulse Resp BP Pulse Ox 10/11/16 12:56 98.9 F 86 16 125/75 95 10/11/16 12:53 98.9 F 78 16 127/75 99 - Laboratory Lab Statement: Any lab studies that have been ordered have been reviewed, and results considered in the medical decision making process. Course/Dx Assessment/Plan: A 21 y/o F presents to the ED with a CC of syncopal episode. Patient was recently admitted and had a negative EEG and metabolic work up. She was sent home with a prescription for zoloft, but has not been taking the medication. Patient is clinically depressed but has no SI. She would like to be discharged at this time. Follow up with outpatient counseling at [facility] or with a private counselor was recommended. - Diagnoses Differential Diagnosis/HQI/PQRI: Positive: Hypovolemia, Seizure, Vasovagal Episode, Other - seizure syncope, depression, Provider Diagnoses: Syncope, Depression Discharge - Discharge Plan Condition: Stable Disposition: HOME Patient Education Materials: Depression (ED), Syncope (ED) Referrals: [facility] [Primary Care Provider] - Additional Instructions: Please follow up with a mental health counselor. The documentation as recorded by the Shannon castellano Auryana accurately reflects the service I personally performed and the decisions made by , Caesar Adams MD.
== END 2016-10-11 13:44 | disposition home or self-care (01) ==
LOC: ED 12:51
DX: R55 Syncope and collapse (principal)
CPT/HCPCS: 99282